=== PATIENT | male | born 1980 | race Caucasian/White ===

== ENCOUNTER 2021-01-10 10:30 | Emergency (ER) | payer OTHER, BC, SELFPAY ==
--- NOTE | ~2021-01-10 | CT_ITS ---
EXAMINATION: CT abdomen pelvis w con DATE: 01/10/2021 11:59 INDICATION: Abdominal pain and leukocytosis TECHNIQUE: Computed tomography (CT) of the abdomen and pelvis was performed with 100 mL Omnipaque-350 intravenous contrast. Automated exposure control and iterative reconstruction technique were employe d. The dose-length product was 460.70 mGy-cm. COMPARISON: None FINDINGS: Lung bases are clear. Heart size is normal. No pericardial or pleural effusion. Subtle focal hepatic steatosis at the ligamentum teres. Gallbladder, spleen, pancreas, bilateral adrenal glands and kidney s are normal. Several diverticula along the proximal sigmoid colon, one with surrounding inflammatory stranding consistent with acute diverticulitis. Minimal likely reactive free fluid in the pelvis. No abscess or free intraperitoneal gas. Small bowel and appendix are normal. Decompressed bladder is no rmal. No pathologically enlarged abdominal or pelvic lymphadenopathy. Minimal likely physiologic ante rior wedging at T10-T12. Mild lumbar and mild to moderate lower thoracic spondylosis. IMPRESSION: 1. Radiographically uncomplicated sigmoid diverticulitis. Reviewed, dictated and finalized at location A.
[2021-01-10 10:35] VITALS: BP 145/93; PULSE 101; RESP 14; TEMP 36.2; O2SAT 100
--- NOTE | 2021-01-10 10:51 | ED.ABDPAIN ---
HPI - Abdominal Pain General Chief Complaint: Abdominal Pain Stated Complaint: ABD PAIN Time Seen by Provider: 01/10/21 10:32 Source: patient Mode of arrival: ambulatory Limitations: no limitations History of Present Illness HPI narrative: This is a 40-year-old male that presents to the emergency department for low abdominal pain present over the last 2 days. Reports sharp, intermittent lower abdominal pain. Also reports diarrhea. Denies fever, nausea, vomiting, dysuria, or hematuria. Related Data Allergies Allergy/AdvReac Type Severity Reaction Status Date / Time No Known Allergies Allergy Verified 01/10/21 10:43 Review of Systems Review of Systems: CONSTITUTIONAL: Denies fever GASTROINTESTINAL: Reports abdominal pain and diarrhea. Denies nausea, vomiting GENITOURINARY: Denies dysuria or hematuria. All systems reviewed & are unremarkable except as noted in HPI and below PMFSH Past Medical History Medical History (Updated 01/10/21 @ 12:10 by Roseline Spence PA-C) No active medical problems Family History Family History (Updated 10/17/15 @ 00:00 by CONVUSER Nydia) Father Hypertension Social History Social History (Updated 01/10/21 @ 10:54 by Roseline Spence PA-C) Smoking status: Former smoker Substance use: never Exam Narrative: GENERAL: Well-appearing, well-nourished, and in no acute distress. HEAD: Normocephalic, atraumatic. EYES: EOMI. CHEST: Clear to auscultation. No respiratory distress. No wheezes rales or rhonchi HEART: Regular rate and rhythm. No murmur heard. Normal peripheral pulses. ABDOMEN: Soft, nondistended, normal active bowel sounds. Tender to palpation throughout the lower abdomen, without guarding. No CVA tenderness EXTREMITIES: Normal range of motion. No edema. SKIN: Warm, dry, no rash. NEURO: No focal deficits. Alert and oriented x3. PSYCH: Normal mood and affect Course Vital Signs Vital signs: Vital Signs Temperature 97.2 F L 01/10/21 10:35 Pulse Rate 101 H 01/10/21 10:35 Respiratory Rate 14 01/10/21 10:35 Blood Pressure 145/93 H 01/10/21 10:35 Pulse Oximetry 100 01/10/21 10:35 Temperature 97.2 F L 01/10/21 10:35 Pulse Rate 101 H 01/10/21 10:35 Respiratory Rate 14 01/10/21 10:35 Blood Pressure 145/93 H 01/10/21 10:35 Pulse Oximetry 100 01/10/21 10:35 MDM - Abdominal Pain MDM Narrative Medical decision making narrative: Patient presents to the ER for low abdominal pain and diarrhea he is afebrile and nontoxic-appearing. His vitals are stable. CBC with mild leukocytosis to 12.3. Metabolic panel without concerning findings. Lipase is normal. CT scan of the abdomen and pelvis shows radiographically uncomplicated sigmoid diverticulitis. Patient was updated on case findings. Will be started on oral antibiotics. He is to follow-up with primary care doctor. He was given warnings to return to the ER Lab Data Attestation: I reviewed the patient's lab results. Result diagrams: 01/10/21 11:12 01/10/21 11:12 Labs: Lab Results 01/10/21 01/10/21 Range/Units 11:12 11:12 WBC 12.3 H (4.5-10.0) K/mm3 RBC 5.12 (4.6-6.20) M/mm3 Hgb 14.4 (14.0-18.0) g/dL Hct 43.5 (42.0-52.0) % MCV 85.0 (80-100) fl MCH 28.1 (26-34) pg MCHC 33.1 (32-36) g/dl RDW 14.1 (11.5-14.5) % Plt Count 216 (150-375) k/mm3 MPV 11.0 H (7.4-10.4) fl Immature Gran % (Auto) 0.3 (0-0.5) % Neut % (Auto) 80.8 H (45.5-73.1) % Lymph % (Auto) 8.3 L (18.3-44.2) % Mora % (Auto) 10.3 H (2.6-8.5) % Eos % (Auto) 0.1 (0-4.4) % Baso % (Auto) 0.2 (0.2-1.2) % Lymph # (Auto) 1.02 (0.9-3.2) K/mm3 Mora # (Auto) 1.3 H (0.1-0.6) K/mm3 Eos # (Auto) 0.0 (0-0.3) K/mm3 Baso # (Auto) 0.0 (0.0-0.1) K/mm3 Abs Immat Gran (auto) 0.04 H (0.00-0.031) K/mm3 Absolute Neuts (auto) 9.9 H (1.3-6.7) K/mm3 Absolute Nucleated RBC 0.0 (0.0-0.012) K/mm3 Nucleated RBC % 0.0 (0.0-0.2) % Sod
[2021-01-10] MEDS: SODIUM CHLORIDE 0.9% IV 1,000 ML 999 ML IV CONT (11:07)
[2021-01-10] MEDS: MORPHINE SULFATE (*CRX) 4 MG/ML INJ IV PUSH (11:08)
[2021-01-10] MEDS: ONDANSETRON INJ 4 MG/2 ML VIAL IV PUSH (11:08)
[2021-01-10 11:20] LABS: Basophils Percent Auto 0.2 % (0.2-1.2); Eosinophils Percent Auto 0.1 % (0-4.4); Hematocrit 43.5 % (42.0-52.0); Hemoglobin 14.4 g/dL (14.0-18.0); Immature Granulocyte Absolute 0.04 K/mm3 (0.00-0.031); Immature Granulocyte Percent A 0.3 % (0-0.5); Lymphocytes Absolute Auto 1.02 K/mm3 (0.9-3.2); Lymphocytes Percent Auto 8.3 % (18.3-44.2); Mean Corpuscular HGB Conc 33.1 g/dl (32-36); Mean Corpuscular Hemoglobin 28.1 pg (26-34); Monocytes Absolute Auto 1.3 K/mm3 (0.1-0.6); Monocytes Percent Auto 10.3 % (2.6-8.5); Neutrophils Absolute Auto 9.9 K/mm3 (1.3-6.7); Neutrophils Percent Auto 80.8 % (45.5-73.1); Platelet Count Result 216 k/mm3 (150-375); Red Blood Count 5.12 M/mm3 (4.6-6.20); Red Cell Distribution Width 14.1 % (11.5-14.5); White Blood Count 12.3 K/mm3 (4.5-10.0)
[2021-01-10 11:33] LABS: Alanine Aminotransferase 48 U/L (4-50); Albumin Level 4.7 g/dL (3.5-5.1); Alkaline Phosphatase 75 U/L (38-126); Anion Gap 7 mmol/L (8-16); Aspartate Amino Transferase 29 U/L (17-59); Bilirubin,Total 1.6 mg/dL (0.2-1.3); Blood Urea Nitrogen 13 mg/dL (9-20); Calcium 9.7 mg/dL (8.4-10.2); Carbon Dioxide 27 mmol/L (22-30); Chloride 101 mmol/L (98-107); Estimated CRCL calculation 75 ml/min; Estimated Glomerular Filt Rate > 60; Glucose 100 mg/dL (65-110); Lipase 32 U/L (23-300); Potassium 4.4 mmol/L (3.4-5.0); Sodium 135 mmol/L (137-145)
[2021-01-10 12:21] VITALS: BP 143/87; PULSE 90; RESP 14; TEMP 36.8; O2SAT 100
[2021-01-10 12:27] LABS: Add Urine Microscopic? YES; Appearance Urine Cloudy (Clear); Bilirubin Urine Negative (Negative); Blood Urine Negative (Negative); Color Urine Amber (Yellow); Glucose Urine UA Negative (Negative); Ketones Urine Negative (Negative); Leukocyte Esterase Ur Negative LEU/UL (Negative); Mucus Urine Heavy /lpf; Nitrate Urine Negative (Negative); Protein Urine 1+ mg/dL (Negative); RBC Urine 0-2 /hpf (0-2); WBC Urine 0-3 /hpf
[2021-01-10 12:31] LABS: Specific Grav Ur 1.034 (1.001-1.035)
== END 2021-01-10 12:23 | disposition home or self-care (01) ==
PROVIDERS: Physician Assistant; Emergency Provider Emergency Medicine
DX: K57.32 Diverticulitis of large intestine without perforation or abscess without bleeding (principal); Z87.891 Personal history of nicotine dependence
CPT/HCPCS: 36415; 74177; 80053; 81001; 83690; 85025; 96361; 96365; 96375; 99284; J0131; J2270; J2405; J7030; Q9967

== ENCOUNTER 2022-02-12 09:04 | Outpatient (CLI) | payer BC, OTHER, SELFPAY ==
[2022-02-12 09:21] LABS: Basophils Absolute Auto 0.05 K/mm3 (0.00-0.10); Basophils Percent Auto 0.5 % (0.0-1.0); Eosinophils Absolute Auto 0.31 K/mm3 (0.02-0.50); Eosinophils Percent Auto 3.1 % (1.0-6.0); Hemoglobin 14.6 g/dL (14.0-18.0); Immature Granulocyte Absolute 0.02 K/mm3 (0.00-0.00); Immature Granulocyte Percent A 0.2 % (0.0-0.0); Lymphocytes Absolute Auto 0.78 K/mm3 (1.10-4.50); Lymphocytes Percent Auto 7.8 % (18.0-42.0); Mean Corpuscular HGB Conc 33.2 g/dL (32.0-36.0); Mean Corpuscular Hemoglobin 27.8 pg (27.0-31.0); Mean Corpuscular Volume 83.7 fL (78.0-102.0); Mean Platelet Volume 10.5 fl (8.7-11.0); Monocytes Absolute Auto 0.61 K/mm3 (0.10-0.90); Monocytes Percent Auto 6.1 % (2.0-11.0); Neutrophils Absolute Auto 8.3 K/mm3 (1.7-7.2); Neutrophils Percent Auto 82.3 % (50.0-70.0); Platelet Count Result 283 K/mm3 (150-420); Red Blood Count 5.26 M/mm3 (4.70-6.10); Red Cell Distribution Width 12.9 % (11.6-14.4); White Blood Count 10.1 K/mm3 (4.8-10.8)
[2022-02-12 10:19] LABS: Alanine Aminotransferase 55 U/L (16-63); Alkaline Phosphatase 84 U/L (46-116); Anion Gap 7 mmol/L (8-16); Aspartate Amino Transferase 22 U/L (15-37); Bilirubin,Total 0.5 mg/dL (0.00-1.00); Blood Urea Nitrogen 10 mg/dL (7-18); CRP 3.6 mg/dL (0.0-0.9); Calcium 9.5 mg/dL (8.5-10.1); Carbon Dioxide 30 mmol/L (21-32); Chloride 105 mmol/L (98-108); Cholesterol 235 mg/dL (0-200); Estimated Glomerular Filt Rate > 60; Glucose 90 mg/dL (70-99); HDL Direct 44 mg/dL (40-60); LDL Cholesterol Calculated 170 mg/dL (<130); Lipase 61 U/L (73-393); Osmolality Calculated 293 mOsm/kg (285-295); Potassium 4.4 mmol/L (3.5-5.1); Sodium 142 mmol/L (136-145); Total Protein 7.6 g/dL (6.4-8.2); Triglycerides 103 mg/dL (0-150)
== END 2022-02-12 09:05 | disposition home or self-care (01) ==
LOC: CHSLAB 09:05
PROVIDERS: PCP Family Medicine; Visit Provider Nurse Practitioner Family
DX: K57.92 Diverticulitis of intestine, part unspecified, without perforation or abscess without bleeding (principal)
CPT/HCPCS: 36415; 80053; 80061; 83690; 85025; 86140

== ENCOUNTER 2023-01-13 19:17 | Emergency (ER) | payer OTHER, BC, SELFPAY ==
[2023-01-13] VITALS (7 sets, daily range): BP systolic 148–171; BP diastolic 89–101; PULSE 78–100; RESP 11–20; TEMP 36.4–36.6; O2SAT 93–99
--- NOTE | ~2023-01-13 | XR_ITS ---
EXAMINATION: XR chest 1V portable DATE: 01/13/2023 20:27 INDICATION: Chest tightness. Shortness of breath. TECHNIQUE: A single frontal view of the chest was obtained. COMPARISON: CT abdomen and pelvis 01/10/2021 FINDINGS: There is no pneumonia, pleural effusion, or pneumothorax. The heart size is normal. IMPRESSION: 1. No acute cardiopulmonary disease. Reviewed, dictated and finalized at location E. ET [employer]
--- NOTE | 2023-01-13 19:59 | ECG_ITS ---
Measurements Intervals [place] Rate: 90 P: 72 IA: 139 QRS: 48 QRSD: 85 T: 39 QT: 352 QTc: 432 Interpretive Statements SINUS RHYTHM BASELINE ARTIFACT- I, II, III, V4 NORMAL ECG NO PREVIOUS ECG AVAILABLE FOR COMPARISON Electronically Signed On 01-14-2023 6:22:50 [employer]IC[employer] by Soto Wall D.O.
[2023-01-13 20:10] LABS: Basophils Absolute Auto 0.07 K/mm3 (0.00-0.10); Basophils Percent Auto 0.8 % (0.0-1.0); Eosinophils Absolute Auto 0.48 K/mm3 (0.02-0.50); Eosinophils Percent Auto 5.3 % (1.0-6.0); Hematocrit 47.4 % (40.0-54.0); Hemoglobin 15.5 g/dL (14.0-18.0); Immature Granulocyte Absolute 0.03 K/mm3 (0.00-0.00); Immature Granulocyte Percent A 0.3 % (0.0-0.0); Lymphocytes Absolute Auto 0.94 K/mm3 (1.10-4.50); Lymphocytes Percent Auto 10.4 % (18.0-42.0); Mean Corpuscular HGB Conc 32.7 g/dL (32.0-36.0); Mean Corpuscular Hemoglobin 27.7 pg (27.0-31.0); Mean Corpuscular Volume 84.6 fL (78.0-102.0); Mean Platelet Volume 10.7 fl (8.7-11.0); Monocytes Absolute Auto 0.62 K/mm3 (0.10-0.90); Monocytes Percent Auto 6.9 % (2.0-11.0); Neutrophils Absolute Auto 6.9 K/mm3 (1.7-7.2); Neutrophils Percent Auto 76.3 % (50.0-70.0); Platelet Count Result 264 K/mm3 (150-420); Red Cell Distribution Width 13.4 % (11.6-14.4); White Blood Count 9.1 K/mm3 (4.8-10.8)
[2023-01-13] MEDS: IPRATROPIUM 0.5 MG/ALBUTEROL SULFATE 2.5 MG AMPUL.NEB 3 ML INHALATION (20:18)
[2023-01-13 20:23] LABS: D Dimer 0.19 mg/L (0.19-0.50)
[2023-01-13 20:35] LABS: Alanine Aminotransferase 60 U/L (16-63); Albumin Level 3.9 g/dL (3.4-5.0); Alkaline Phosphatase 84 U/L (46-116); Anion Gap 12 mmol/L (8-16); Aspartate Amino Transferase 22 U/L (15-37); Bilirubin,Total 0.4 mg/dL (0.00-1.00); Blood Urea Nitrogen 11 mg/dL (7-18); Calcium 9.6 mg/dL (8.5-10.1); Carbon Dioxide 27 mmol/L (21-32); Chloride 101 mmol/L (98-108); Estimated CRCL calculation 88 ml/min; Estimated Glomerular Filt Rate > 60; Glucose 101 mg/dL (70-99); NT Pro B Type Natriuretic Pept 49 pg/mL (0-125); Osmolality Calculated 289 mOsm/kg (285-295); Potassium 3.9 mmol/L (3.5-5.1); Sodium 140 mmol/L (136-145); Total Protein 8.1 g/dL (6.4-8.2); Troponin I 20.8 ng/L (0.00-60.4)
--- NOTE | 2023-01-13 20:48 | ED.SOB ---
HPI - SOB/Dyspnea General Chief Complaint: Shortness of Breath/Dyspnea Stated Complaint: shortness of breath Source: patient Mode of arrival: ambulatory Limitations: no limitations History of Present Illness HPI Narrative: This is a 42-year-old male with no significant past medical history was working yesterday and is well was exposed to some metal dust and had subsequently become short of breath with tightness in his chest, patient is a nonsmoker no history of asthma or COPD, with some no audible wheezing does have some chest tightness with shortness of breath no fever chills no nausea vomiting no abdominal pain no family history of heart disease. MD elicited complaint: shortness of breath Onset (ago): day(s) Timing: constant Severity: mild Related Data Allergies Allergy/AdvReac Type Severity Reaction Status Date / Time No Known Allergies Allergy Verified 02/12/22 08:45 Review of Systems Review of Systems: All systems reviewed & are unremarkable except as noted in HPI and below PMFSH Past Medical History Medical History Diverticulitis Family History Family History Father Hypertension Social History Social History Smoking status: Former smoker Alcohol intake: current Drinks per week: 5 Alcohol use details: 5-6 drinks/week Substance use: never Lack of Transportation: No Lack of Food: Never True Current Housing: I Have Housing Concerned About Future Housing: No Difficulty Paying Gas/Electric Bills: No Difficulty Paying for Meds: No Currently Unemployed: No Education: Bachelor's Degree Difficulty w/ Childcare or Family Care: No Exam Const: General: healthy appearing and no acute distress Nutritional Appearance: well nourished Orientation/consciousness: patient oriented x3 Limitations: no limitations HENMT: Head: normal to inspection Eyes: Conjunctivae: conjunctivae normal Neck: Neck: normal visual inspection and no lymphadenopathy Chest: Chest palpation & inspection: normal inspection of the chest Resp: Effort & Inspection: normal respiratory effort Auscultation: clear to auscultation bilaterally Cardio: Rate: regular rate Rhythm: regular rhythm GI: GI Palp: Yes Soft to palpation Auscultation: normal bowel sounds Skin: General skin exam: normal color Extrem: General: normal to inspection Psych: Mental Status: mental status grossly normal Affect: normal affect Course Course Emergency Course: Patient received DuoNeb and after reassessment states that he feels much better, x-rays EKG and blood work reviewed with patient which showed no acute abnormality, advised patient to follow-up with his primary if symptoms persist or worsen. Vital Signs Vital signs: Vital Signs Temperature 36.4 C 01/13/23 20:00 Pulse Rate 96 01/13/23 20:00 Respiratory Rate 20 01/13/23 20:00 Blood Pressure 171/101 H 01/13/23 20:00 Pulse Oximetry 95 01/13/23 20:00 Oxygen Delivery Room Air 01/13/23 20:00 Temperature 36.4 C 01/13/23 20:00 Pulse Rate 100 01/13/23 20:15 Respiratory Rate 20 01/13/23 20:15 Blood Pressure 171/101 H 01/13/23 20:00 Pulse Oximetry 95 01/13/23 20:15 Oxygen Delivery Room Air 01/13/23 20:00 MDM - SOB/Dyspnea Lab Data 01/13/23 20:07 01/13/23 20:07 Labs: Lab Results 01/13/23 01/13/23 Range/Units 20:06 20:07 WBC 9.1 (4.8-10.8) K/mm3 RBC 5.60 (4.70-6.10) M/mm3 Hgb 15.5 (14.0-18.0) g/dL Hct 47.4 (40.0-54.0) % MCV 84.6 (78.0-102.0) fL MCH 27.7 (27.0-31.0) pg MCHC 32.7 (32.0-36.0) g/dL RDW 13.4 (11.6-14.4) % Plt Count 264 (150-420) K/mm3 MPV 10.7 (8.7-11.0) fl Immature Gran % (Auto) 0.3 H (0.0-0.0) % Neut % (Auto) 76.3 H (50.0-70.0) % Lymph % (Auto) 10.4 L (18.0-42.
== END 2023-01-13 21:05 | disposition home or self-care (01) ==
PROVIDERS: Emergency Provider Emergency Medicine; PCP Family Medicine
DX: J45.20 Mild intermittent asthma, uncomplicated (principal); Z87.891 Personal history of nicotine dependence
CPT/HCPCS: 36415; 71045; 80053; 83880; 84484; 85025; 85380; 93005; 94640; 99284

== ENCOUNTER 2024-08-10 13:14 | Outpatient (CLI) | payer OTHER, SELFPAY ==
[2024-08-10 13:39] LABS: Basophils Absolute Auto 0.06 K/mm3 (0.00-0.10); Basophils Percent Auto 0.8 % (0.0-1.0); Eosinophils Absolute Auto 0.34 K/mm3 (0.02-0.50); Eosinophils Percent Auto 4.4 % (1.0-6.0); Hematocrit 44.1 % (40.0-54.0); Hemoglobin 14.5 g/dL (14.0-18.0); Immature Granulocyte Absolute 0.04 K/mm3 (0.00-0.00); Immature Granulocyte Percent A 0.5 % (0.0-0.0); Lymphocytes Absolute Auto 1.38 K/mm3 (1.10-4.50); Lymphocytes Percent Auto 17.8 % (18.0-42.0); Mean Corpuscular HGB Conc 32.9 g/dL (32-36); Mean Corpuscular Hemoglobin 27.2 pg (27.0-31.0); Mean Corpuscular Volume 82.7 fL (78.0-102.0); Mean Platelet Volume 11.1 fl (8.7-11.0); Monocytes Absolute Auto 0.62 K/mm3 (0.10-0.90); Neutrophils Absolute Auto 5.31 K/mm3 (1.70-7.20); Neutrophils Percent Auto 68.5 % (50.0-70.0); Platelet Count Result 286 K/mm3 (150-420); Red Blood Count 5.33 M/mm3 (4.70-6.10); Red Cell Distribution Width 13.1 % (11.6-14.4); White Blood Count 7.8 K/mm3 (4.8-10.8)
[2024-08-10 14:06] LABS: Alanine Aminotransferase 49 U/L (6-50); Albumin Level 4.5 g/dL (3.5-5.1); Alkaline Phosphatase 57 U/L (38-126); Anion Gap 9 mmol/L (4-12); Aspartate Amino Transferase 38 U/L (17-59); Bilirubin,Total 0.7 mg/dL (0.2-1.3); Blood Urea Nitrogen 14 mg/dL (9-20); Calcium 9.7 mg/dL (8.4-10.2); Carbon Dioxide 27 mmol/L (22-30); Chloride 104 mmol/L (98-107); Cholesterol 238 mg/dL (0-200); Estimated Glomerular Filt Rate > 60; Glucose 97 mg/dL (65-110); HDL Direct 37 mg/dL; LDL Cholesterol Calculated 178 mg/dL (<130); Osmolality Calculated 290 mOsm/kg (285-295); Potassium 3.7 mmol/L (3.4-5.0); Sodium 140 mmol/L (137-145); Total Protein 7.5 g/dL (6.3-8.2); Triglycerides 117 mg/dL (<150)
== END 2024-08-10 13:15 | disposition home or self-care (01) ==
LOC: CHSLAB 13:15
PROVIDERS: PCP Family Medicine; Visit Provider Family Medicine
DX: E03.9 Hypothyroidism, unspecified (principal); I10 Essential (primary) hypertension
CPT/HCPCS: 36415; 80053; 80061; 84443; 85025